=== PATIENT | male | born 1960 | race Two or more races ===

== ENCOUNTER 2020-09-08 15:57 | Outpatient (REF) | payer BC, SELFPAY ==
--- NOTE | ~2020-09-08 | XR_ITS ---
EXAMINATION: XR CHEST CLINICAL INFORMATION: Bronchitis. COMPARISON: None TECHNIQUE: 2 views of the chest were obtained. FINDINGS: The lungs are hyperinflated but clear. The heart size and pulmonary vascularity is normal. There is a left atrial appendage clip and mitral valve prosthesis in place. There are median sternotomy sutures from previous intervention. No gross bony abnormality seen. XR/XR chest 2V IMPRESSION: No acute cardiopulmonary process seen.
== END 2020-09-08 15:58 | disposition home or self-care (01) ==
LOC: HO.XRAY 15:57
PROVIDERS: PCP Internal Medicine; Visit Provider Nurse Practitioner Family
DX: J42 Unspecified chronic bronchitis (principal)
CPT/HCPCS: 71046

== ENCOUNTER 2020-09-11 08:09 | Outpatient (REF) | payer BC, SELFPAY ==
[2020-09-11 09:35] LABS: MANUAL DIFF FLAG NO
[2020-09-11 09:48] LABS: Basophils Percent Auto 0.2 % (0-2); Hematocrit 44.1 % (42-52); Hemoglobin 14.6 g/dl (14.0-18.0); Imm Gran Abs Auto 0.02 X10*3/uL (0.00-0.03); Imm Gran Pct Auto 0.2 % (0.0-0.4); Lymphocytes Percent Auto 22.5 % (20-40); Mean Corpuscular HGB Conc 33.1 g/dl (31.0-36.0); Mean Corpuscular Hemoglobin 29.6 pg (27.0-33.0); Mean Corpuscular Volume 89.3 fL (80-98); Mean Platelet Volume 11.2 fL (9.4-12.4); Monocytes Absolute Auto 0.7 X10*3/uL (0.1-1.2); Monocytes Percent Auto 7.3 % (2-11); Neutrophils Absolute Auto 6.2 X10*3/uL (2.0-8.3); Neutrophils Percent Auto 69.8 % (45-73); Platelet Count 217 X10*3/uL (160-400); Red Blood Count 4.94 X10*6/uL (4.60-5.80); Red Cell Distribution Width 13.6 % (11.0-16.0); White Blood Count 8.9 X10*3/uL (4.8-10.8)
[2020-09-11 10:17] LABS: Creatinine Urine 162.61 mg/dL; Microalbum/Creatinine Ratio Ur 6.7 ug/mg cr
[2020-09-11 10:32] LABS: Alanine Aminotransferase 27 U/L (0-40); Albumin Level 4.3 g/dL (3.5-5.0); Alkaline Phosphatase 58 U/L (39-117); Anion Gap 12 (12-20); Aspartate Amino Transferase 23 U/L (5-37); Bilirubin Direct 0.3 mg/dL (0.0-0.5); Bilirubin Total 0.6 mg/dL (0.0-1.0); Blood Urea Nitrogen 19 mg/dL (9-16); Calcium 9.1 mg/dL (8.4-10.2); Carbon Dioxide 27 mmol/L (22-29); Chloride 106 mmol/L (96-108); Cholesterol 183 mg/dL; Estimated Glomerular Filt Rate > 60; Glucose Fasting 161 mg/dL (60-99); HDL Cholesterol 50 mg/dL; LDL Cholesterol Calculated 121 mg/dl; Potassium 4.3 mmol/L (3.3-5.1); Sodium 141 mmol/L (135-145); Total Protein 7.3 g/dL (6.5-8.0); Triglycerides 61 mg/dL
[2020-09-11 10:38] LABS: Prostate Specific Antigen Scr 0.62 ng/mL (<0.05-4.0); TSH reflex Free T4 0.48 uIU/mL (0.32-4.0)
== END 2020-09-11 08:10 | disposition home or self-care (01) ==
LOC: HO.LAB 08:09
PROVIDERS: PCP Internal Medicine; Visit Provider Nurse Practitioner Family
DX: Z00.00 Encounter for general adult medical examination without abnormal findings (principal); E11.65 Type 2 diabetes mellitus with hyperglycemia
CPT/HCPCS: 36415; 80048; 80061; 80076; 82043; 84153; 84443; 85025

== ENCOUNTER 2020-11-24 15:31 | Outpatient (REF) | payer BC, SELFPAY ==
--- NOTE | ~2020-11-24 | XR_ITS ---
EXAMINATION: XR CHEST CLINICAL INFORMATION: Shortness of breath. COMPARISON: Most recent chest radiograph dated 09/08/2020. TECHNIQUE: 2 views of the chest were obtained. FINDINGS: Diffuse, chronic interstitial prominence is unchanged. Hyperinflation of the lungs is again noted. No new airspace consolidation. No pleural effusion or pneumothorax. Stable cardiomediastinal silhouette with sternal wires, valvuloplasty, and atrial appendage clip. XR/XR chest 2V IMPRESSION: No acute cardiopulmonary findings.
== END 2020-11-24 15:32 | disposition home or self-care (01) ==
LOC: HO.XRAY 15:31
PROVIDERS: PCP Internal Medicine; Visit Provider Internal Medicine
DX: R06.02 Shortness of breath (principal)
CPT/HCPCS: 71046

== ENCOUNTER 2024-01-22 07:49 | Outpatient (REF) | payer BC, SELFPAY ==
--- NOTE | ~2024-01-22 | MR_ITS ---
MRI OF THE BRAIN WITH AND WITHOUT IV CONTRAST INDICATION: Colloid cyst of the brain. COMPARISON: None available. TECHNIQUE: Multiplanar multisequence MR imaging of the brain was obtained without and following administration of 7.5 mL of Gadavist intravenous contrast without complication. FINDINGS: There is no pathologic enhancement intracranially. There is no hydrocephalus, extra-axial surface collection, or herniation. There is mild chronic microangiopathy. The major flow voids at the skull base are preserved. There is no acute infarct on diffusion-weighted imaging. There is no intracranial hemorrhage on the gradient recalled echo acquisition. Punctate focus of chronic hemosiderin staining within the periphery of the left parietal lobe. The midline structures are normal. The cerebellar tonsils are normally positioned. The cerebellum and brainstem are normal. The craniocervical junction is normal. Osseous marrow signal intensity is homogenous. The visualized soft tissues are unremarkable. Significant opacification of the ethmoid air cells bilaterally and mild mucosal thickening within the frontal sinuses and maxillary sinuses bilaterally. MR/MR head/brain wo con IMPRESSION: * No colloid cyst is appreciated on MRI. There is CSF flow artifact within the ventricles bilaterally. No pathological enhancement intracranially. * There is mild chronic microangiopathy. * Significant opacification of the ethmoid air cells bilaterally and mild mucosal thickening within the frontal sinuses and maxillary sinuses bilaterally. Electronically signed by: Dominik Kwong MD 02/19/2024 04:24 PM EDT
[2024-01-22] MEDS: gadobutroL 7.5 ML VIAL IVPUSH (09:24)
== END 2024-01-22 07:50 | disposition home or self-care (01) ==
LOC: HO.MRI 07:49
PROVIDERS: PCP Internal Medicine; Visit Provider Registered Nurse
DX: Q04.6 Congenital cerebral cysts (principal)
CPT/HCPCS: 70551; A9585

== ENCOUNTER 2024-02-11 15:23 | Outpatient (REF) | payer BC, SELFPAY ==
[2024-02-11 18:12] LABS: Erythrocyte Sedimentation Rate 2 MM/HR (0-15)
== END 2024-02-11 15:24 | disposition home or self-care (01) ==
LOC: HO.LAB 15:23
PROVIDERS: Visit Provider Registered Nurse
DX: Q04.6 Congenital cerebral cysts (principal)
CPT/HCPCS: 36415; 85652; 86140

== ENCOUNTER 2025-06-04 15:31 | Outpatient (AMB) | payer BC, SELFPAY ==
--- OUTSIDE RECORDS SUMMARY | 2024-10-27 10:30 | XMS_ITS | Continuity of Care Document ---
Author Organization [facility] Address [address] [place] [address] [address] [place] [id number] Phone Care Team Providers Care Cutter Gas Name Role Phone Vishnu SHANNON, ALONDRA, ARABELLA, Silvino Unavailable U navailable Procedures Procedure Date Office/Oupt E&M New Pt 45 Mins- CT & [place] Duplex Scan-extrem Veins; Uni/ CT & [place] M Advance Directives Directive Yes / No Effective Date File Name No Information Encounters Encounter Description Practice Location Reason(s) For Visit Diagnoses Date Provider Providers Copied on Encounter Office/Oupt E&M New Pt 45 Mins- CT & [place] [facility], [address] [place] [address] [address], [id number], [place] tel:[phone] [place] Varicose veins of right lower extremity with other complicationsTy pe 2 diabetes mellitus without complicationsEs sential (primary) hypertensionPru ritus, unspecified 5 Vishnu SHANNON, ALONDRA, ARABELLA [place]. [address] [facility] [address], [facility] [place], [id number] , [place]. tel:[phone] Referring Provider: Brian Connell MD, [address] [facility] [address], [place], [address]. tel:[phone] [facility], [address] [place] [address] [address] [place], [id number], [place] tel:[phone] [facility] Varicose veins of right lower extremity with pain Vishnu SHANNON, RVT, RPVI Silvino. [address] [facility], [address], [place], [id number] , [place]. tel:[phone] Referring Provider: Brian Connell MD, [address] [facility] [address], [place], [address]. tel:[phone] Family History Family Member Type Diagnosis Age At Onset No Information Payers Payer name Insurance type Covered republican ID Authoriza tivira(s) [facility] [id number] Social History Type Description Quantity Date Captured Comments Alcohol Use Details Unknown Caffeine Use Details Unknown Tobacco Use Status Current non-smoker Smoking Status Never Smoker Non-Smoking Tobacco Use Details : No Details Available : No Details Available Sex Male Vital Signs Date / Time: Height Weight BMI Pulse Rate Blood Pressure Temperature Respiratory Rate Body Surface Area Head Circumference Head Circ. Percentile Wt./Sam. Percentile BMI percentile Pulse Ox Inhaled Ox 77.560 kg (171.00 lbs) 27.6 8 kg/m eter (2) 136/80 mm[Hg] Chief Complaint And Reason For Visit No Information Reason For Referral Reason For Referral No Information Plan Of Treatment Date Type Action Status Goal Diet education completed Referral Ordered: Weight management: Referral to physician timeframe: 3 Months (related to Body mass index (BMI) 27.0-27.9, adult) ordered History Of Present Illness Encounter Date Complaint History Of Prese nt Illness No Information Functional Status Date Functional Assessmen t No Information Instructions Date Instruction Additional Infor mation Pre and post instruc tions reviewed and provided Related to Varicose veins of right lower extremity with other complications Patient education booklet given Related to Varicose veins of right lower extremity with other complications Lifestyle education Related to B ramsey mass index (BMI) 27.0-27.9, adult Giving Encouragement to exercise Related to Body mass index (BMI) 27.0-27.9, adult Diet education Related to Body mass index (BMI) 27.0-27.9, adult Assessments Type Assessment Date assessment Pruritus, unspecified assessment Varicose veins of ri ght lower extremity with other complications assessment Essential (primary) hypertension assessment Type 2 diabetes mellitus without complications Patient Care Teams Name Effective Dates (start - stop) Status Members No Information
--- NOTE | 2025-06-04 15:32 | A.OFFVIS_ITS ---
Vital Signs 06/04/25 15:37 Height 5 ft 9 in Weight 176 lb BMI 26.0 Intake Visit Reasons: 10 year recall colonoscopy Intake Note: Patient presents for 10 year recall colonoscopy. 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 Hard Candy Spinner Required: No Accompanied by: Self / Same As Patient Allergies No Known Allergies (No Known Allergies*) Allergy (Unverified 06/04/25 15:35) HPI HPI 10 year recall colonoscopy: Details: 65-year-old male referred for a recall colonoscopy. Review of his records show that his last colonoscopy was in 2016. At that time, a small polyp was removed and this was a tubular adenoma . He also had hemorrhoids . He denies GI complaints currently. He does admit to chronic constipation but he says that this has not new. He denies rectal bleeding. He denies any changes in his bowel habits. He does not have any significant family history of colon cancer. [facility] Medical History (Updated 11/09/20 @ 13:23 by Shaye Mcleod MD) Atrial fibrillation BPH (benign prostatic hyperplasia) GERD (gastroesophageal reflux disease) Hypertension Chronic bronchitis Hypercholesterolemia Type 2 diabetes mellitus with hyperglycemia Surgical History (Updated 11/09/20 @ 13:07 by Shaye Mcleod MD) Heart valve replaced H/O right inguinal hernia repair Family History (Updated 11/09/20 @ 13:08 by Shaye Mcleod MD) Mother No problems noted. Father Cancer Colon cancer Social History (Updated 11/09/20 @ 13:11 by Shaye Mcleod MD) Alcohol intake: never Review of Systems Const Denies chills and Denies fever(s) Card Denies chest pain, Denies dyspnea and Denies dyspnea on exertion Resp Denies cough, Denies dyspnea and Denies dyspnea on exertion GI Denies hematochezia and Denies change in bowel habits Denies hematuria and Denies difficulty urinating Musc Denies back pain and Denies limited range of motion Neuro Denies focal weakness and Denies convulsions Psych Denies depression and Denies mood swings Physical Exam Const General: comfortable and no acute distress Orientation/consciousness: patient oriented x3 Neck Neck: Yes no lymphadenopathy Resp Auscultation: clear to auscultation bilaterally Cardio Rhythm: regular rhythm GI Palpation (GI): Soft to palpation, nontender and no guarding Neuro General: patient oriented x3 Assessment & Plan Assessment & Plan (1) Screening for colon cancer: Code(s): Z12.11 - Encounter for screening for malignant neoplasm of colon Category: Medical Plan: I reviewed with him the technique of colonoscopy for screening. I explained the risks including but not limited to bleeding and perforation, as well as the benefits and alternatives. He says he understands the procedure well and has given consent. He does not seem to be at above average risk for colon cancer. Orders: Referrals General Surgery Procedure Notification Z12.11 - Encounter for screening for malignant neoplasm of colon Medications: New sodium,potassium,mag sulfates 17.5-3.13-1.6 gram (Suprep Bowel Prep Kit) DILUTE; drink full amount early evening before AND next morning at least 2 hr before procedure; follow w 960 mL water PO 354 mL 0RF Coding Level of Care Code New Pt Level 3 (22430) Diagnoses Screening for colon cancer Z12.11
[2025-06-04 15:37] VITALS: BMI 26.0
--- OUTSIDE RECORDS SUMMARY | 2025-06-04 23:02 | XMS_ITS | Clinical Summary ---
Author Organization [facility] Address [address] [place] [id number] Phone Care Team Providers Care Research Technician Name Role Phone Chance Walton MD Primary Care Provider [phone] Allergies No known active allergies Medications No known medications Active Problems No known active problems Family History Relation Status Comments Father Mother Alive Social History Tobacco Use Types Packs/Day Years Used Date Smoking Tobacco: Former Cigarettes Q uit: 1982 Smokeless Tobacco: Never Alcohol Use Standard Drinks/Week Comments No 0 (1 standard drink = 0.6 oz pur e alcohol) Education Answer Date Recorded Are you interested in more education? Not on leroy e 10/20/2022 Are you concerned about learning? Not on file 10/20/2022 No 10/20/2022 No 10/20/2022 Digital Access Answer Date Recorded No 11/18/2022 No 11/18/2022 No 11/18/2022 Reliable internet access at home? Not on file 11/18/2022 Device with a working camera? Not on file Sex and Gender Information Value Date Recorded Sex Assigned at Not on file Legal Sex Male 5:59 PM EST Gender Identity Not on file Sexual Orientation Not on file Last Filed Vital Signs Vital Sign Reading Time Taken Comments Blood Pressure - - Pulse - - Temperature - - Respiratory Rate - - Oxygen Saturation - - Inhaled Oxygen Concentration - - Weight 81.6 kg (180 lb) 06/11/2017 3:22 PM EST Height 175.3 cm (5' 9 ) 06/11/2017 3:22 PM EST Body Mass Index 26.58 06/11/2017 3:22 PM EST Plan of Treatment Health Maintenance Due Date Last Done Comments Adult Td,Tdap Booster 1962 LIPID PANEL 1962 DEPRESSION SCREENING 1974 SMOKING Hx and SMOKELESS TOBACCO SCREENING 1975 HEPATITIS C SCREENING 1980 HIV ONE-TIME SCREENING (18-6 5 YEARS) 1980 COLOGUARD 2007 COLONOSCOPY 2007 COLORECTAL CANCER SCREENING 2007 FIT TEST 2007 FOBT 2007 SIGMOIDOSCOPY 2007 VIRTUAL COLONOSCOPY 2007 PNEUMOCOCCAL VACCINES (50+ years) (1 of 1 - PCV) 2012 ZOSTER VACCINES (1 of 2) 2012 INFLUENZA VACCINE (#1) 2025 COVID-19 VACCINE (3 - 2024-2 6 season) 2025 12/03/2020, 11/12/2020 RSV VACCINE (1 - 1-dose 75+ series) 2037 HEPATITIS A VACCINES Aged Out No long er eligible based on patient's age to complete this topic HIB VACCINES Aged Out No longer eligi ble based on patient's age to complete this topic MENINGOCOCCAL VACCINES (ACWY) Aged Out No longer eligible based on patient's age to complete this topic MENINGOCOCCAL VACCINES (B) Aged Out N o longer eligible based on patient's age to complete this topic Medical Devices Not on file Insurance [employer] Care Teams Research Technician Relationship Specialty Start Date End Date Chance Walton MD [address] [place] [address] [place] [address] PCP - General Internal Medicine 05/29/17 Additional Source Comments The information contained in this document represents components of the legal health record. It is not the complete legal health record.[facility]
--- OUTSIDE RECORDS SUMMARY | 2025-06-04 23:02 | XMS_ITS | Clinical Summary ---
Author Organization [address] Address [address] [place] [address] Phone Care Team Providers Care Coat Finisher Name Role Phone Brian Connell MD Primary Care Provider Allergies Active Allergy Reactions Criticality Noted Date Comments Lisinopril 04/14/2025 dry cough Medications amoxicillin-clavul anate (AUGMENTIN) 875-125 mg per tablet 12/29/2024 Active Jardiance 10 mg tablet 02/25/2025 Active Wixela Inhub 250-50 mcg/dose diskus inhaler 11/25/2024 Acti ve losartan (COZAAR) 25 mg tablet 07/02/2024 Active metFORMIN XR (GLUCOPHAGE-XR) 500 mg 24 hr tablet 04/07/2025 Active warfarin (COUMADIN) 3 mg tablet 02/25/2025 Active Encounters Date Type Department Care Team Description 05/26/2025 2:30 PM EST Office Visit Orthopedic Surgery [facility] [address] [facility] [address] [place] [phone] Brook Felix MD 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 (Primary Dx) 05/11/2025 5:30 PM EST Treatment Outpatient Rehabilitation - [address] [phone] Abraham Chase, PT Right knee pain, unspecified chronicity (Primary Dx) 04/22/2025 8:30 AM EDT Evaluation Outpatient Rehabilitation - [address] [phone] Abraham Chase, PT Right knee pain, unspecified chronicity (Primary Dx); 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 04/20/2025 Lab Requisition [facility] - Main Lab [address] [facility] [place] [address] Brian Connell MD Postprocedural hypothyroidism; Encounter for therapeutic drug level monitoring; Encounter for general adult medical examination without abnormal findings; Unspecified osteoarthritis, unspecified site; Vitamin D deficiency, unspecified; Essential (primary) hypertension 04/14/2025 2:00 PM EDT Consult Orthopedic Surgery - [place] [address] [facility] [address] [place] [address] Brook Felix MD 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 (Primary Dx); Right knee pain, unspecified chronicity from Last 3 Months Surgical History Surgery Date Site/Laterality Comments CARDIAC SURGERY 06/25/2018 - 06/24/2019 Medical History Medical History Date Comments Hypertension Diabetes mellitus ([facility] V24, [facility] V28) History of heart surgery Social History Tobacco Use Types Packs/Day Years Used Date Smoking Tobacco: Never Assessed Sex and Gender Information Value Date Recorded Sex Assigned at Not on file Legal Sex Male 6:19 AM EST Gender Identity Not on file Sexual Orientation Not on file Last Filed Vital Signs Vital Sign Reading Time Taken Comments Blood Pressure - - Pulse - - Temperature - - Respiratory Rate - - Oxygen Saturation - - Inhaled Oxygen Concentration - - Weight 78.9 kg (174 lb) 04/14/2025 2:14 PM EDT Height 175.3 cm (5' 9 ) 04/14/2025 2:14 PM EDT Body Mass Index 25.7 04/14/2025 2:14 PM EDT Plan of Treatment Upcoming Encounters Date Type Department Care Team (Late st Contact Info) Description 06/10/2025 5:00 PM EST Treatment Outpatient Rehabilitation [address] [phone] Abraham Chase, PT Health Maintenance Due Date Last Done Comments Colorectal Cancer Screening: Colonoscopy 1962 RSV Immunization Adult Patients (1 - Risk 50-74 years 1-dose series) 2012 Zoster Vaccines (1 of 2) 2012 Pneumococcal Vaccine: 50+ Years (2 of 2 - PCV) 10/04/2019 10/03/2018 DTaP,Tdap,and Td Vaccines (2 - Td or Tdap) 11/16/2019 11/15/2009 HIV Screening 05/28/2022 Hepatitis C Screening 05/28/2022 Social Influencers of Health Screening 05/28/2022 Depression Screening 06/25/2024 COVID-19 Vaccine (4 - 2024-2 6 season) 2025 07/02/2021, 12/03/2020, 11/12/2020 Influenza Vaccine (#1) 2025 10/03/2018 Hypertension/CHF/CAD Annual BMP Blood Test 04/22/2026 04/22/2025, 12/29/2024, 08/19/2024 Cholesterol Screening (Lipid Panel) 04/22/2030 04/22/2025 Hepatitis A Vaccines Aged Out 11/15/2009 No long er eligible based on patient's age to complete this topic HIB Vaccines Aged Out No longer eligi ble based on patient's age to complete this topic HPV Vaccines Aged Out No longer eligi ble based on patient's age to complete this topic Hepatitis B Vaccines Aged Out No long er eligible based on patient's age to complete this topic IPV Vaccines Aged Out No longer eligi ble based on patient's age to complete this topic MMR Vaccines Aged Out No longer eligi ble based on patient's age to complete this topic Meningococcal ACWY Vaccine Aged Out N o longer eligible based on patient's age to complete this topic Meningococcal B Vaccine Aged Out No l onger eligible based on patient's age to complete this topic RSV Immunization Patients Under 20 months Aged Out No longer eligible b ased on patient's age to complete this topic Varicella Vaccines Aged Out No longer eligible based on patient's age to complete this topic Goals Goal Patient Goal Type Associated Problems Recent Progress Patient-Stated? Author LTG's 6 visits General Yes Abraham Chase, PT Note: Pt will report a 75% or better decrease in R knee crepitus when ascending stairs. Pt will be Independent and compliant with final HEP. Pt will demonstrate a 1/2 grade of better improvement in B LE strength deficits. Procedures Procedure Name Priority Date/Time Associated Diagnosis Comments CBC WITH AUTO DIFFERENTIAL Routine 04/22/2025 7:40 AM EDT Encounter for general adult medical examination without abnormal findings HEMOGLOBIN A1C Routine 04/22/2025 7:40 AM EDT Encounter for general adult medical examination without abnormal findings MICROALBUMIN CREATININE URINE RATIO Routine 04/22/2025 7:40 AM EDT Essential (primary) hypertension VITAMIN D 25 HYDROXY Routine 04/22/2025 7:40 AM EDT Vitamin D deficiency, unspecified LIPID PANEL WITH REFLEX TO DIRECT LDL Routine 04/22/2025 7:40 AM EDT Encounter for general adult medical examination without abnormal findings SEDIMENTATION RATE Routine 04/22/2025 7: 40 AM EDT Unspecified osteoarthritis, unspecified site CBC AND DIFFERENTIAL Routine 04/22/2025 7:40 AM EDT Encounter for general adult medical examination without abnormal findings COMPREHENSIVE METABOLIC PANEL Routine 04/22/2025 7:40 AM EDT Encounter for general adult medical examination without abnormal findings URIC ACID Routine 04/22/2025 7:40 AM EDT Encounter for therapeutic drug level monitoring THYROID STIMULATING HORMONE Routine 04/22/2025 7:40 AM EDT Postprocedural hypothyroidism XR KNEE 4+ VIEWS RIGHT Routine 04/14/2025 2:29 PM EDT Right knee pain, unspecified chronicity OK ARTHROCENTESIS/ASPIRA TION/INJECTION MAJOR JOINT/BURSA W/O U/S GUIDANCE Routine 04/14/2025 2:00 PM EDT 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 from Last 3 Months Results * Lipid panel with reflex to direct LDL (04/22/2025 7:40 AM EDT) Cholesterol 166 0 - 200 mg/dL LAB CHEMISTRY METHOD 04/22/2025 9:41 AM T [facility] Triglycerides 68 0 - 150 mg/dL LAB CHEMISTRY METHOD 04/22/2025 9:41 AM [facility] HDL 54 >=40 mg/dL LAB CHEMISTRY METHOD 04/22/2025 9:41 AM [facility] LDL Calculated 98 0 - 100 mg/dL LAB CHEMISTRY METHOD 04/22/2025 9:41 AM T [facility] Comment:Estimated LDL Calcul ated using equation: Total cholesterol - HDL cholesterol - (Triglycerides/5) VLDL Cholesterol Isauro 13.6 mg/dL LAB CHEMISTRY METHOD 04/22/2025 9:41 AM [facility] Non HDL Chol. (LDL+VLDL) 112 <145 mg/dL LAB CHEMISTRY METHOD 04/22/2025 9:41 AM [facility] Chol/HDL Ratio 3.1 0.0 - 4.4 LAB CHEMISTRY METHOD 04/22/2025 9:41 AM [facility] Blood Venous blood specimen / Unknown Venipuncture / Unknown 04/22/2025 7:40 AM EDT 04/22/2025 9:06 AM EDT us Brian Connell MD LAB BLOOD ORDERABLES Final Res ult [facility] [address] [place] [address], * (ABNORMAL) CBC auto differential (04/22/2025 7:40 AM EDT) WBC 8.0 4.8 - 10.8 K/[facility] LAB HEMETOLOGY METHOD 04/22/2025 9:16 AM [facility] RBC 5.10 4.50 - 5.50 M/mcL LAB HEMETOLOGY METHOD 04/22/2025 9:16 AM [facility] Hemoglobin 14.8 13.5 - 17.5 g/dL LAB HEMETOLOGY METHOD 04/22/2025 9:16 AM [facility] Hematocrit 45.8 42.0 - 54.0 % LAB HEMETOLOGY METHOD 04/22/2025 9:16 AM [facility] MCV 89.6 79.0 - 98.0 FL LAB HEMETOLOGY METHOD 04/22/2025 9:16 AM [facility] MCH 29.0 27.0 - 32.0 pcg LAB HEMETOLOGY METHOD 04/22/2025 9:16 AM [facility] MCHC 32.3 32.0 - 37.0 g/dL LAB HEMETOLOGY METHOD 04/22/2025 9:16 AM [facility] RDW 14.0 11.0 - 15.0 % LAB HEMETOLOGY METHOD 04/22/2025 9:16 AM [facility] Platelets 233 130 - 400 K/mcL LAB HEMETOLOGY METHOD 04/22/2025 9:16 AM [facility] MPV 10.4 7.0 - 11.0 FL LAB HEMETOLOGY METHOD 04/22/2025 9:16 AM [facility] NRBC 0.0 <1.0 % LAB HEMETOLOGY METHOD 04/22/2025 9:16 AM [facility] NRBC Absolute 0.00 <0.10 K/mcL LAB HEMETOLOGY METHOD 04/22/2025 9:16 AM [facility] Neutrophils Relative 51.2 % LAB HEMETOLOGY METHOD 04/22/2025 9:16 AM [facility] Lymphocytes Relative 31.7 % LAB HEMETOLOGY METHOD 04/22/2025 9:16 AM [facility] Monocytes Relative 10.7 % LAB HEMETOLOGY METHOD 04/22/2025 9:16 AM EDT [facility] Eosinophils Relative 4.8 % LAB HEMETOLOGY METHOD 04/22/2025 9:16 AM EDT [facility] Basophils Relative 1.1 % LAB HEMETOLOGY METHOD 04/22/2025 9:16 AM EDT [facility] Immature Granulocytes Relative 0.5 % LAB HEMETOLOGY METHOD 04/22/2025 9:16 AM EDT [facility] Neutrophils Absolute 4.07 1.50 - 7.00 K/mcL LAB HEMETOLOGY METHOD 04/22/2025 9:16 AM EDT [facility] Lymphocytes Absolute 2.52 1.00 - 5.00 K/mcL LAB HEMETOLOGY METHOD 04/22/2025 9:16 AM EDT [facility] Monocytes Absolute 0.85 0.20 - 1.00 K/mcL LAB HEMETOLOGY METHOD 04/22/2025 9:16 AM EDT [facility] Eosinophils Absolute 0.38 0.00 - 0.50 K/mcL LAB HEMETOLOGY METHOD 04/22/2025 9:16 AM EDT [facility] Basophils Absolute 0.09 0.00 - 0.20 K/mcL LAB HEMETOLOGY METHOD 04/22/2025 9:16 AM EDT [facility] Immature Granulocytes Absolute 0.04(H) 0.00 - 0.03 K/mcL LAB HEMETOLOGY METHOD 04/22/2025 9:16 AM EDT [facility] Blood Venous blood specimen / Unknown Venipuncture / Unknown 04/22/2025 7:40 AM EDT 04/22/2025 9:06 AM EDT us Brian Connell MD LAB BLOOD ORDERABLES Final Res ult [facility] [address] [place] [address], [place] [phone] * Microalbumin creatinine urine ratio (04/22/2025 7:40 AM EDT) Creatinine, Urine 170.0 mg/dL LAB CHEMISTRY METHOD 04/22/2025 9:55 AM EDT [facility] Microalb, Ur 13.3 0.0 - 29.0 mg/L LAB CHEMISTRY METHOD 04/22/2025 9:55 AM EDT [facility] Microalb/Creat Ratio 8 <30 mg/g creat LAB CHEMISTRY METHOD 04/22/2025 9:55 AM EDT [facility] Urine Urine specimen obtained by clean catch procedure / Unknown 04/22/2025 7:40 AM EDT 04/22/2025 9:06 AM EDT us Brian Connell MD LAB URINE ORDERABLES Final Res ult [facility] [address] [place] [address], [place] [phone] * (ABNORMAL) Vitamin D 25 hydroxy (04/22/2025 7:40 AM EDT) Vit D, 25-Hydroxy 26.5(L) 30.0 - 80.0 ng/mL LAB CHEMISTRY METHOD 04/22/2025 10:28 AM EDT [facility] Blood Venous blood specimen / Unknown Venipuncture / Unknown 04/22/2025 7:40 AM EDT 04/22/2025 9:06 AM EDT us Brian Connell MD LAB BLOOD ORDERABLES Final Res ult [facility] [address] [place] [address], [place] [phone] * Sedimentation rate (04/22/2025 7:40 AM EDT) Pathologist [facility] Sed Rate 7 0 - 20 mm/hr LAB HEMETOLOGY METHOD 04/22/2025 9:16 AM EDT [facility] Blood Venous blood specimen / Unknown Venipuncture / Unknown 04/22/2025 7:40 AM EDT 04/22/2025 9:06 AM EDT Brian Connell MD LAB BLOOD ORDERABLES Final Res ult Performing Organization Address [facility]/ZIP Co de Phone Number [facility] [address] [place] [address], [place] [phone] * Uric acid (04/22/2025 7:40 AM EDT) [facility] Uric Acid 3.9 3.7 - 9.2 mg/dL LAB CHEMISTRY METHOD 04/22/2025 9:41 AM EDT [facility] Blood Venous blood specimen / Unknown Venipuncture / Unknown 04/22/2025 7:40 AM EDT 04/22/2025 9:06 AM EDT Brian Connell MD LAB BLOOD ORDERABLES Final Res ult Performing Organization Address [facility]/ZIP Co de Phone Number [facility] [address] [place] [address], [place] [phone] * Thyroid stimulating hormone (04/22/2025 7:40 AM EDT) [facility] TSH 2.99 0.40 - 4.00 mcIU/mL LAB CHEMISTRY METHOD 04/22/2025 10:29 AM EDT [facility] Blood Venous blood specimen / Unknown Venipuncture / Unknown 04/22/2025 7:40 AM EDT 04/22/2025 9:06 AM EDT us Brian Connell MD LAB BLOOD ORDERABLES Final Res ult Performing Organization Address City/[facility]/ZIP Co de Phone Number [facility] [address] [place] [address], * (ABNORMAL) Hemoglobin A1c (04/22/2025 7:40 AM EDT) [facility] Hemoglobin A1C 7.8(H) <6.5 % LAB CHEMISTRY METHOD 04/22/2025 10:38 AM EDT [facility] Mean Bld Glu Estim. 177 mg/dL LAB CHEMISTRY METHOD 04/22/2025 10:38 AM EDT [facility] Blood Venous blood specimen / Unknown Venipuncture / Unknown 04/22/2025 7:40 AM EDT 04/22/2025 9:06 AM EDT Brian Connell MD LAB BLOOD ORDERABLES Final Res ult Performing Organization Address [facility]/ZIP Co de Phone Number [facility] [address] [place] [address], [place] [phone] * (ABNORMAL) Comprehensive metabolic panel (04/22/2025 7:40 AM EDT) [facility] Sodium 138 133 - 145 mmol/L LAB CHEMISTRY METHOD 04/22/2025 9:53 AM [facility] Potassium 4.2 3.5 - 5.5 mmol/L LAB CHEMISTRY METHOD 04/22/2025 9:53 AM T [facility] Chloride 108 96 - 110 mmol/L LAB CHEMISTRY METHOD 04/22/2025 9:53 AM EDT [facility] CO2 26 21 - 32 mmol/L LAB CHEMISTRY METHOD 04/22/2025 9:53 AM T [facility] Anion Gap 4 3 - 11 LAB CHEMISTRY METHOD 04/22/2025 9:53 AM [facility] Glucose 115(H) 70 - 100 mg/dL LAB CHEMISTRY METHOD 04/22/2025 9:53 AM [facility] BUN 23 5 - 25 mg/dL LAB CHEMISTRY METHOD 04/22/2025 9:53 AM [facility] Creatinine 1.17 0.70 - 1.30 mg/dL LAB CHEMISTRY METHOD 04/22/2025 9:53 AM [facility] eGFR 70 >=60 mL/min/1. 73m2 LAB CHEMISTRY METHOD 04/22/2025 9:53 AM [facility] Comment:Calculation based on the Chronic Kidney Disease Epidemiology Collaboration (CKD-EPI) equation refit without adjustment for race. BUN/Creatinine Ratio 19.7 LAB CHEMISTRY METHOD 04/22/2025 9:53 AM [facility] Calcium 9.1 8.5 - 10.5 mg/dL LAB CHEMISTRY METHOD 04/22/2025 9:53 AM [facility] AST (SGOT) 22 10 - 42 unit/L LAB CHEMISTRY METHOD 04/22/2025 9:53 AM [facility] ALT (SGPT) 43 10 - 60 unit/L LAB CHEMISTRY METHOD 04/22/2025 9:53 AM [facility] Alkaline Phosphatase 56 42 - 121 unit/L LAB CHEMISTRY METHOD 04/22/2025 9:53 AM [facility] Total Protein 7.0 6.0 - 8.0 g/dL LAB CHEMISTRY METHOD 04/22/2025 9:53 AM [facility] Albumin 3.8 3.2 - 5.0 g/dL LAB CHEMISTRY METHOD 04/22/2025 9:53 AM [facility] Total Bilirubin 0.7 0.0 - 1.4 mg/dL LAB CHEMISTRY METHOD 04/22/2025 9:53 AM [facility] Blood Venous blood specimen / Unknown Venipuncture / Unknown 04/22/2025 7:40 AM EDT 04/22/2025 9:06 AM EDT Brian Connell MD LAB BLOOD ORDERABLES Final Res ult [facility] [address] [place] [address], * XR Knee 4+ Views Right (04/14/2025 2:29 PM EDT) Anatomical Region Laterality Modality Lower Extremities, Knee Right Computed Radiography Narrative 04/14/2025 4:26 PM EDT There is overall well-maintained joint space in all three compartments of his bilateral knee but mildly narrowed in the medial compartment of the right knee. There is early osteophyte formation along the right medial femoral condyle. There is subchondral sclerosis of the medial tibial plateau bilaterally. There is spurring of the tibial spines. Brook Felix MD IMG XR PROCEDURES Diana l Result * OK ARTHROCENTESIS/ASPIRATION/INJECTION MAJOR JOINT/BURSA W/O U/S GUIDANCE (04/14/2025 2:00 PM EDT) Narrative Brook Felix MD - 04/14/2025 2:00 PM EDT Brook Felix MD 04/14/2025 4:29 PM L Inj/Asp: R knee Details: 21 G needle Medications: 4 mL BUPivacaine HCl 0.5 %; 4 mL lidocaine 1 %; 80 mg triamcinolone acetonide 40 mg/mL Brook Felix MD IN CLINIC/BEDSIDE NOEL BECERRA Final Result from Last 3 Months Insurance [facility] Care Teams Coat Finisher Relationship Specialty Start Date End Date Brian Connell MD [address] [place] [address] PCP - General Internal Medicine 08/19/24
--- OUTSIDE RECORDS SUMMARY | 2025-06-04 23:02 | XMS_ITS | Encounter Summary ---
Author Organization [facility] Address [address] [place] [address] Care Team Providers Care Cotton Puller Name Role Phone Brian Connell MD Primary Care Provider [phone] Encounter Details Date Type Department Care Team (Latest Contact Info) Description 12/29/2024 Lab Requisition [facility] - Main Lab [address] [facility] [place] [phone] Brian Connell MD [address] [place], [place] [phone] Postprocedural hypothyroidism; Essential (primary) hypertension; Unspecified osteoarthritis, unspecified site; Vitamin D deficiency, unspecified; Type 2 diabetes mellitus with hyperglycemia (CMS/HCC V24, CMS/HCC V28) Social History Tobacco Use Types Packs/Day Years Used Date Smoking Tobacco: Never Assessed Sex and Gender Information Value Date Recorded Sex Assigned at Not on file Legal Sex Male 6:19 AM EST Gender Identity Not on file Sexual Orientation Not on file documented as of this encounter Plan of Treatment Upcoming Encounters Date Type Department Care Team (Late st Contact Info) Description 06/10/2025 5:00 PM EST Treatment Outpatient [address] [phone] Abraham Chase, PT documented as of this encounter Procedures Procedure Name Priority Date/Time Associated Diagnosis Comments VITAMIN D 25 HYDROXY Routine 12/29/2024 2:37 PM EDT Vitamin D deficiency, unspecified SEDIMENTATION RATE Routine 12/29/2024 2: 37 PM EDT Unspecified osteoarthritis, unspecified site THYROID STIMULATING HORMONE Routine 12/29/2024 2:37 PM EDT Postprocedural hypothyroidism HEMOGLOBIN A1C Routine 12/29/2024 2:37 PM EDT Type 2 diabetes mellitus with hyperglycemia ([facility] V24, [facility] V28) COMPREHENSIVE METABOLIC PANEL Routine 12/29/2024 2:37 PM EDT Essential (primary) hypertension documented in this encounter Results * (ABNORMAL) Hemoglobin A1c (12/29/2024 2:37 PM EDT) Hemoglobin A1C 7.3(H) <6.5 % LAB CHEMISTRY METHOD 12/29/2024 9:13 PM EDT [facility] Mean Bld Glu Estim. 163 mg/dL LAB CHEMISTRY METHOD 12/29/2024 9:13 PM EDT [facility] Blood Venous blood specimen / Unknown Venipuncture / Unknown 12/29/2024 2:37 PM EDT 12/29/2024 2:50 PM EDT Brian Connell MD LAB BLOOD ORDERABLES Final Res ult Performing Organization Address City/[facility] Co de Phone Number [facility] [address] [place] [address], * (ABNORMAL) Vitamin D 25 hydroxy (12/29/2024 2:37 PM EDT) Vit D, 25-Hydroxy 23.4(L) 30.0 - 80.0 ng/mL LAB CHEMISTRY METHOD 12/29/2024 4:58 PM EDT [facility] Blood Venous blood specimen / Unknown Venipuncture / Unknown 12/29/2024 2:37 PM EDT 12/29/2024 2:49 PM EDT Brian Connell MD LAB BLOOD ORDERABLES Final Res ult [facility] [address] [place] [address], [place] [phone] * Sedimentation rate (12/29/2024 2:37 PM EDT) Sed Rate 6 0 - 20 mm/hr LAB HEMETOLOGY METHOD 12/29/2024 3:00 PM EDT [facility] Blood Venous blood specimen / Unknown Venipuncture / Unknown 12/29/2024 2:37 PM EDT 12/29/2024 2:50 PM EDT Brian Connell MD LAB BLOOD ORDERABLES Final Res ult Performing Organization Address [facility]/ZIP Co de Phone Number [facility] [address] [place] [address], [place] [phone] * (ABNORMAL) Comprehensive metabolic panel (12/29/2024 2:37 PM EDT) [facility] Sodium 139 133 - 145 mmol/L LAB CHEMISTRY METHOD 12/29/2024 3:55 PM EDT [facility] Potassium 4.0 3.5 - 5.5 mmol/L LAB CHEMISTRY METHOD 12/29/2024 3:55 PM EDT [facility] Chloride 106 96 - 110 mmol/L LAB CHEMISTRY METHOD 12/29/2024 3:55 PM EDT [facility] CO2 29 21 - 32 mmol/L LAB CHEMISTRY METHOD 12/29/2024 3:55 PM EDT [facility] Anion Gap 4 3 - 11 LAB CHEMISTRY METHOD 12/29/2024 3:55 PM EDT [facility] Glucose 174(H) 70 - 100 mg/dL LAB CHEMISTRY METHOD 12/29/2024 3:55 PM EDT [facility] BUN 16 5 - 25 mg/dL LAB CHEMISTRY METHOD 12/29/2024 3:55 PM EDT [facility] Creatinine 1.34(H) 0.70 - 1.30 mg/dL LAB CHEMISTRY METHOD 12/29/2024 3:55 PM EDT [facility] eGFR 60 >=60 mL/min/1. 73m2 LAB CHEMISTRY METHOD 12/29/2024 3:55 PM T [facility] Comment:Calculation based on the Chronic Kidney Disease Epidemiology Collaboration (CKD-EPI) equation refit without adjustment for race. BUN/Creatinine Ratio 11.9 LAB CHEMISTRY METHOD 12/29/2024 3:55 PM EDT [facility] Calcium 8.9 8.5 - 10.5 mg/dL LAB CHEMISTRY METHOD 12/29/2024 3:55 PM [facility] AST (SGOT) 18 10 - 42 unit/L LAB CHEMISTRY METHOD 12/29/2024 3:55 PM [facility] ALT (SGPT) 31 10 - 60 unit/L LAB CHEMISTRY METHOD 12/29/2024 3:55 PM T [facility] Alkaline Phosphatase 63 42 - 121 unit/L LAB CHEMISTRY METHOD 12/29/2024 3:55 PM T [facility] Total Protein 6.9 6.0 - 8.0 g/dL LAB CHEMISTRY METHOD 12/29/2024 3:55 PM [facility] Albumin 3.7 3.2 - 5.0 g/dL LAB CHEMISTRY METHOD 12/29/2024 3:55 PM [facility] Total Bilirubin 0.4 0.0 - 1.4 mg/dL LAB CHEMISTRY METHOD 12/29/2024 3:55 PM [facility] Blood Venous blood specimen / Unknown Venipuncture / Unknown 12/29/2024 2:37 PM EDT 12/29/2024 2:49 PM EDT us Brian Connell MD LAB BLOOD ORDERABLES Final Res ult [facility] [address] [place] [address], [place] [phone] * Thyroid stimulating hormone (12/29/2024 2:37 PM EDT) TSH 1.70 0.40 - 4.00 mcIU/mL LAB CHEMISTRY METHOD 12/29/2024 4:58 PM EDT [facility] Blood Venous blood specimen / Unknown Venipuncture / Unknown 12/29/2024 2:37 PM EDT 12/29/2024 2:49 PM EDT Brian Connell MD LAB BLOOD ORDERABLES Final Res ult [facility] [address] [place] [address], documented in this encounter Visit Diagnoses Diagnosis Postprocedural hypothyroidism Postsurgical hypothyroidism Essential (primary) hypertension Unspecified essential hypertension Unspecified osteoarthritis, unspecified site Vitamin D deficiency, unspecified Type 2 diabetes mellitus with hyperglycemia (CMS/HCC V24, CMS/HCC V28) documented in this encounter Care Teams Cotton Puller Relationship Specialty Start Date End Date Brian Connell MD [address] [place] [address] PCP - General Internal Medicine 08/19/24 documented as of this encounter
--- OUTSIDE RECORDS SUMMARY | 2025-06-04 23:02 | XMS_ITS | Encounter Summary ---
Author Organization [facility] Address [address] [place] [address] Care Team Providers Care Java Oracle Developer Name Role Phone Brian Connell MD Primary Care Provider [phone] Encounter Details Date Type Department Care Team (Latest Contact Info) Description 04/20/2025 Lab Requisition [facility] - Main Lab [address] [facility] [place] [phone] Brian Connell MD [address] [place], [place] [id number] Postprocedural hypothyroidism; Encounter for therapeutic drug level monitoring; Encounter for general adult medical examination without abnormal findings; Unspecified osteoarthritis, unspecified site; Vitamin D deficiency, unspecified; Essential (primary) hypertension Social History Tobacco Use Types Packs/Day Years [...] 06/10/2025 5:00 PM EST Treatment Outpatient Rehabilitation [address] [phone] Abraham Chase, PT documented as of this encounter Goals Goal Patient Goal Type Associated Problems Recent Progress Patient-Stated? Author LTG's 6 visits General Yes Abraham Chase, PT Note: Pt will report a 75% or better decrease in R knee crepitus when ascending stairs. Pt will be Independent and compliant with final HEP. Pt will demonstrate a 1/2 grade of better improvement in B LE strength deficits. documented as of this encounter Procedures Procedure Name Priority Date/Time Associated Diagnosis Comments LIPID PANEL WITH REFLEX TO DIRECT LDL Routine 04/22/2025 7:40 AM EDT Encounter for general adult medical examination without abnormal findings CBC WITH AUTO DIFFERENTIAL Routine 04/22/2025 7:40 AM EDT Encounter for general adult medical examination without abnormal findings MICROALBUMIN CREATININE URINE RATIO Routine 04/22/2025 7:40 AM EDT Essential (primary) hypertension VITAMIN D 25 HYDROXY Routine 04/22/2025 7:40 AM EDT Vitamin D deficiency, unspecified SEDIMENTATION RATE Routine 04/22/2025 7: 40 AM EDT Unspecified osteoarthritis, unspecified site CBC AND DIFFERENTIAL Routine 04/22/2025 7:40 AM EDT Encounter for general adult medical examination without abnormal findings URIC ACID Routine 04/22/2025 7:40 AM EDT Encounter for therapeutic drug level monitoring THYROID STIMULATING HORMONE Routine 04/22/2025 7:40 AM EDT Postprocedural hypothyroidism HEMOGLOBIN A1C Routine 04/22/2025 7:40 AM EDT Encounter for general adult medical examination without abnormal findings COMPREHENSIVE METABOLIC PANEL Routine 04/22/2025 7:40 AM EDT Encounter for general adult medical examination without abnormal findings documented in this encounter Results * (ABNORMAL) CBC auto differential (04/22/2025 7:40 AM EDT) WBC 8.0 4.8 - 10.8 K/[facility] LAB HEMETOLOGY METHOD 04/22/2025 9:16 AM EDT [facility] RBC 5.10 4.50 - 5.50 M/[facility] LAB HEMETOLOGY METHOD 04/22/2025 9:16 AM EDT [facility] Hemoglobin 14.8 13.5 - 17.5 g/dL LAB HEMETOLOGY METHOD 04/22/2025 9:16 AM [facility] Hematocrit 45.8 42.0 - 54.0 % LAB HEMETOLOGY METHOD 04/22/2025 9:16 AM [facility] LAB MCV 89.6 79.0 - 98.0 FL LAB HEMETOLOGY METHOD 04/22/2025 9:16 AM [facility] LAB MCH 29.0 27.0 - 32.0 pcg LAB HEMETOLOGY METHOD 04/22/2025 9:16 AM [facility] LAB MCHC 32.3 32.0 - 37.0 g/dL LAB HEMETOLOGY METHOD 04/22/2025 9:16 AM [facility] RDW 14.0 11.0 - 15.0 % LAB HEMETOLOGY METHOD 04/22/2025 9:16 AM [facility] Platelets 233 130 - 400 K/mcL LAB HEMETOLOGY METHOD 04/22/2025 9:16 AM [facility] LAB MPV 10.4 7.0 - 11.0 FL LAB HEMETOLOGY METHOD 04/22/2025 9:16 AM [facility] NRBC 0.0 <1.0 % LAB HEMETOLOGY METHOD 04/22/2025 9:16 AM [facility] NRBC Absolute 0.00 <0.10 K/mcL LAB HEMETOLOGY METHOD 04/22/2025 9:16 AM [facility] Neutrophils Relative 51.2 % LAB HEMETOLOGY METHOD 04/22/2025 9:16 AM [facility] Lymphocytes Relative 31.7 % LAB HEMETOLOGY METHOD 04/22/2025 9:16 AM [facility] Monocytes Relative 10.7 % LAB HEMETOLOGY METHOD 04/22/2025 9:16 AM EDT [facility] Eosinophils Relative 4.8 % LAB HEMETOLOGY METHOD 04/22/2025 9:16 AM EDT [facility] Basophils Relative 1.1 % LAB HEMETOLOGY METHOD 04/22/2025 9:16 AM EDT [facility] Immature Granulocytes Relative 0.5 % LAB HEMETOLOGY METHOD 04/22/2025 9:16 AM EDT [facility] Neutrophils Absolute 4.07 1.50 - 7.00 K/mcL LAB HEMETOLOGY METHOD 04/22/2025 9:16 AM EDT [facility] Lymphocytes Absolute 2.52 1.00 - 5.00 K/mcL LAB HEMETOLOGY METHOD 04/22/2025 9:16 AM EDT [facility] Monocytes Absolute 0.85 0.20 - 1.00 K/mcL LAB HEMETOLOGY METHOD 04/22/2025 9:16 AM EDT [facility] Eosinophils Absolute 0.38 0.00 - 0.50 K/mcL LAB HEMETOLOGY METHOD 04/22/2025 9:16 AM EDT [facility] Basophils Absolute 0.09 0.00 - 0.20 K/mcL LAB HEMETOLOGY METHOD 04/22/2025 9:16 AM EDT [facility] Immature Granulocytes Absolute 0.04(H) 0.00 - 0.03 K/mcL LAB HEMETOLOGY METHOD 04/22/2025 9:16 AM EDT [facility] Blood Venous blood specimen / Unknown Venipuncture / Unknown 04/22/2025 7:40 AM EDT 04/22/2025 9:06 AM EDT us Brian Connell MD LAB BLOOD ORDERABLES Final Res ult [facility] [address] [place] [address], * (ABNORMAL) Hemoglobin A1c (04/22/2025 7:40 AM EDT) Hemoglobin A1C 7.8(H) <6.5 % LAB CHEMISTRY METHOD 04/22/2025 10:38 AM EDT [facility] Mean Bld Glu Estim. 177 mg/dL LAB CHEMISTRY METHOD 04/22/2025 10:38 AM EDT [facility] Blood Venous blood specimen / Unknown Venipuncture / Unknown 04/22/2025 7:40 AM EDT 04/22/2025 9:06 AM EDT us Brian Connell MD LAB BLOOD ORDERABLES Final Res ult Performing Organization Address [facility]/ZIP Co de Phone Number [facility] [address] [place] [address], * Microalbumin creatinine urine ratio (04/22/2025 7:40 AM EDT) Creatinine, Urine 170.0 mg/dL LAB CHEMISTRY METHOD 04/22/2025 9:55 AM EDT [facility] Microalb, Ur 13.3 0.0 - 29.0 mg/L LAB CHEMISTRY METHOD 04/22/2025 9:55 AM EDT [facility] Microalb/Creat Ratio 8 <30 mg/g creat LAB CHEMISTRY METHOD 04/22/2025 9:55 AM EDT [facility] Urine Urine specimen obtained by clean catch procedure / Unknown 04/22/2025 7:40 AM EDT 04/22/2025 9:06 AM EDT us Brian Connell MD LAB URINE ORDERABLES Final Res ult Performing Organization Address [facility]/ZIP Co de Phone Number [facility] [address] [place] [address], [place] [phone] * (ABNORMAL) Vitamin D 25 hydroxy (04/22/2025 7:40 AM EDT) [facility] Vit D, 25-Hydroxy 26.5(L) 30.0 - 80.0 ng/mL LAB CHEMISTRY METHOD 04/22/2025 10:28 AM EDT [facility] Blood Venous blood specimen / Unknown Venipuncture / Unknown 04/22/2025 7:40 AM EDT 04/22/2025 9:06 AM EDT us Brian Connell MD LAB BLOOD ORDERABLES Final Res ult [facility] [address] [place] [address], [place] [phone] * Lipid panel with reflex to direct LDL (04/22/2025 7:40 AM EDT) [facility] Cholesterol 166 0 - 200 mg/dL LAB CHEMISTRY METHOD 04/22/2025 9:41 AM [facility] Triglycerides 68 0 - 150 mg/dL LAB CHEMISTRY METHOD 04/22/2025 9:41 AM [facility] HDL 54 >=40 mg/dL LAB CHEMISTRY METHOD 04/22/2025 9:41 AM [facility] LDL Calculated 98 0 - 100 mg/dL LAB CHEMISTRY METHOD 04/22/2025 9:41 AM [facility] LAB Comment:Estimated LDL Calcul ated using equation: Total cholesterol - HDL cholesterol - (Triglycerides/5) VLDL Cholesterol Isauro 13.6 mg/dL LAB CHEMISTRY METHOD 04/22/2025 9:41 AM [facility] Non HDL Chol. (LDL+VLDL) 112 <145 mg/dL LAB CHEMISTRY METHOD 04/22/2025 9:41 AM [facility] Chol/HDL Ratio 3.1 0.0 - 4.4 LAB CHEMISTRY METHOD 04/22/2025 9:41 AM EDT [facility] Blood Venous blood specimen / Unknown Venipuncture / Unknown 04/22/2025 7:40 AM EDT 04/22/2025 9:06 AM EDT Brian Connell MD LAB BLOOD ORDERABLES Final Res ult Performing Organization Address City/[facility]/ZIP Co de Phone Number [facility] [address] [place] [address], [place] [phone] * Sedimentation rate (04/22/2025 7:40 AM EDT) Pathologist [facility] Sed Rate 7 0 - 20 mm/hr LAB HEMETOLOGY METHOD 04/22/2025 9:16 AM EDT [facility] Blood Venous blood specimen / Unknown Venipuncture / Unknown 04/22/2025 7:40 AM EDT 04/22/2025 9:06 AM EDT us Brian Connell MD LAB BLOOD ORDERABLES Final Res ult Performing Organization Address City/[facility]/ZIP Co de Phone Number [facility] [address] [place] [address], [place] [phone] * (ABNORMAL) Comprehensive metabolic panel (04/22/2025 7:40 AM EDT) Pathologist [facility] Sodium 138 133 - 145 mmol/L LAB CHEMISTRY METHOD 04/22/2025 9:53 AM EDT [facility] Potassium 4.2 3.5 - 5.5 mmol/L LAB CHEMISTRY METHOD 04/22/2025 9:53 AM EDT [facility] Chloride 108 96 - 110 mmol/L LAB CHEMISTRY METHOD 04/22/2025 9:53 AM EDT [facility] CO2 26 21 - 32 mmol/L LAB CHEMISTRY METHOD 04/22/2025 9:53 AM EDT [facility] Anion Gap 4 3 - 11 LAB CHEMISTRY METHOD 04/22/2025 9:53 AM [facility] Glucose 115(H) 70 - 100 mg/dL LAB CHEMISTRY METHOD 04/22/2025 9:53 AM [facility] BUN 23 5 - 25 mg/dL LAB CHEMISTRY METHOD 04/22/2025 9:53 AM [facility] Creatinine 1.17 0.70 - 1.30 mg/dL LAB CHEMISTRY METHOD 04/22/2025 9:53 AM [facility] eGFR 70 >=60 mL/min/1. 73m2 LAB CHEMISTRY METHOD 04/22/2025 9:53 AM [facility] Comment:Calculation based on the Chronic Kidney Disease Epidemiology Collaboration (CKD-EPI) equation refit without adjustment for race. BUN/Creatinine Ratio 19.7 LAB CHEMISTRY METHOD 04/22/2025 9:53 AM [facility] Calcium 9.1 8.5 - 10.5 mg/dL LAB CHEMISTRY METHOD 04/22/2025 9:53 AM [facility] AST (SGOT) 22 10 - 42 unit/L LAB CHEMISTRY METHOD 04/22/2025 9:53 AM [facility] ALT (SGPT) 43 10 - 60 unit/L LAB CHEMISTRY METHOD 04/22/2025 9:53 AM [facility] Alkaline Phosphatase 56 42 - 121 unit/L LAB CHEMISTRY METHOD 04/22/2025 9:53 AM [facility] Total Protein 7.0 6.0 - 8.0 g/dL LAB CHEMISTRY METHOD 04/22/2025 9:53 AM [facility] Albumin 3.8 3.2 - 5.0 g/dL LAB CHEMISTRY METHOD 04/22/2025 9:53 AM [facility] Total Bilirubin 0.7 0.0 - 1.4 mg/dL LAB CHEMISTRY METHOD 04/22/2025 9:53 AM EDT [facility] Blood Venous blood specimen / Unknown Venipuncture / Unknown 04/22/2025 7:40 AM EDT 04/22/2025 9:06 AM EDT Brian Connell MD LAB BLOOD ORDERABLES Final Res ult [facility] [address] [place] [address], [place] [phone] * Uric acid (04/22/2025 7:40 AM EDT) Uric Acid 3.9 3.7 - 9.2 mg/dL LAB CHEMISTRY METHOD 04/22/2025 9:41 AM EDT [facility] Blood Venous blood specimen / Unknown Venipuncture / Unknown 04/22/2025 7:40 AM EDT 04/22/2025 9:06 AM EDT us Brian Connell MD LAB BLOOD ORDERABLES Final Res ult Performing Organization Address [facility]/ZIP Co de Phone Number [facility] [address] [place] [address], [place] [phone] * Thyroid stimulating hormone (04/22/2025 7:40 AM EDT) TSH 2.99 0.40 - 4.00 mcIU/mL LAB CHEMISTRY METHOD 04/22/2025 10:29 AM EDT [facility] Blood Venous blood specimen / Unknown Venipuncture / Unknown 04/22/2025 7:40 AM EDT 04/22/2025 9:06 AM EDT us Brian Connell MD LAB BLOOD ORDERABLES Final Res ult Performing Organization Address City/[facility]/ZIP Co de Phone Number [facility] [address] [place] [address], [place] [phone] documented in this encounter Visit Diagnoses Diagnosis Postprocedural hypothyroidism Postsurgical hypothyroidism Encounter for therapeutic drug level monitoring Encounter for general adult medical examination without abnormal findings Unspecified osteoarthritis, unspecified site Vitamin D deficiency, unspecified Essential (primary) hypertension Unspecified essential hypertension documented in this encounter Care Teams Java Oracle Developer Relationship Specialty Start Date End Date Brian Connell MD [address] [place] [phone] PCP - General Internal Medicine 08/19/24 documented as of this encounter
--- OUTSIDE RECORDS SUMMARY | 2025-06-04 23:02 | XMS_ITS | Encounter Summary ---
Author Organization [facility] Address [address] [place] [address] Phone Care Team Providers Care Wrecker Operator Name Role Phone Chance Walton MD Primary Care Provider [phone] Encounter Details Date Type Department Care Team (Late st Contact Info) Description 05/29/2017 Ancillary Orders [facility], X-Ray - [address] [place] [address] Sakshi Zuniga, [facility] [address] [facility], [address] [place] [address] [email or web address] Pain Social History Tobacco Use Types Packs/Day Years Used Date Smoking Tobacco: Never Assessed Sex and Gender Information Value Date Recorded Sex Assigned at Not on file Legal Sex Male 5:59 PM EST Gender Identity Not on file Sexual Orientation Not on file documented as of this encounter Plan of Treatment Not on file documented as of this encounter Results * XR FINGER 4TH DIGIT (RIGHT) (05/29/2017 6:14 PM EST) Anatomical Region Laterality Modality Hand Right Radiographic Angelica ging 05/29/2017 6:31 PM EST Impressions 05/29/2017 6:34 PM EST Tuft fracture of the fourth digit. POS - [id number] Narrative 05/29/2017 6:34 PM EST HISTORY: Status post crush injury of the distal phalanx of the fourth digit COMPARISON: None FINDINGS: PA view of the hand and two additional views of the fourth digit are performed. Nondisplaced tuft fracture of the fourth digit. No malalignment. Mild joint space narrowing with spurring involving the first CMC and first IP joints from degenerative change. No destructive bone lesion. Procedure Note Trevor Keating MD - 05/29/2017 HISTORY: Status post crush injury of the distal phalanx of the fourthdigit COMPARISON: None FINDINGS: PA view of the hand and two additional views of the fourth digit areperformed. Nondisplaced tuft fracture of the fourth digit. Nomalalignment. Mild joint space narrowing with spurring involving thefirst CMC and first IP joints from degenerative change. No destructivebone lesion. IMPRESSION: Tuft fracture of the fourth digit. POS - [id number] Sakshi Zuniga [employer] IMG XR UPPER EXTREMITY F inal Result documented in this encounter Visit Diagnoses Diagnosis Pain Generalized pain Pain Generalized pain documented in this encounter Care Teams Wrecker Operator Relationship Specialty Start Date End Date Chance Walton MD [address] [place] [address] [place] [address] PCP - General Internal Medicine 05/29/17 documented as of this encounter Additional Source Comments The information contained in this document represents components of the legal health record. It is not the complete legal health record.[facility]
--- OUTSIDE RECORDS SUMMARY | 2025-06-04 23:02 | XMS_ITS | Encounter Summary ---
Author Organization [facility] Address [address] [place] [address] Care Team Providers Care Time Analysis Clerk Name Role Phone Brian Connell MD Primary Care Provider [phone] Encounter Details Date Type Department Care Team (Latest Contact Info) Description 08/18/2024 Lab Requisition [facility] - Main Lab [address] [facility] [place] [phone] Brian Connell MD [address] [place], [place] [id number] Postprocedural hypothyroidism; Essential (primary) hypertension; Mild intermittent asthma, uncomplicated; Unspecified osteoarthritis, unspecified site; Vitamin D deficiency, [...] 06/10/2025 5:00 PM EST Treatment Outpatient Rehabilitation [address] [phone] Abraham Chase, PT documented as of this encounter Procedures Procedure Name Priority Date/Time Associated Diagnosis Comments CBC WITH AUTO DIFFERENTIAL Routine 08/19/2024 1:14 PM EST Mild intermittent asthma, uncomplicated VITAMIN D 1,25 DIHYDROXY Routine 08/19/2024 1:14 PM EST Vitamin D deficiency, unspecified VITAMIN D 25 HYDROXY Routine 08/19/2024 1:14 PM EST Vitamin D deficiency, unspecified SEDIMENTATION RATE Routine 08/19/2024 1: 14 PM EST Unspecified osteoarthritis, unspecified site CBC AND DIFFERENTIAL Routine 08/19/2024 1:14 PM EST Mild intermittent asthma, uncomplicated THYROID STIMULATING HORMONE Routine 08/19/2024 1:14 PM EST Postprocedural hypothyroidism HEMOGLOBIN A1C Routine 08/19/2024 1:14 PM EST Type 2 diabetes mellitus with hyperglycemia (CMS/HCC) COMPREHENSIVE METABOLIC PANEL Routine 08/19/2024 1:14 PM EST Essential (primary) hypertension documented in this encounter Results * (ABNORMAL) CBC auto differential (08/19/2024 1:14 PM EST) WBC 6.2 4.8 - 10.8 K/mcL LAB HEMETOLOGY METHOD 08/19/2024 1:58 PM [facility] RBC 4.90 4.50 - 5.50 M/mcL LAB HEMETOLOGY METHOD 08/19/2024 1:58 PM [facility] Hemoglobin 14.3 13.5 - 17.5 g/dL LAB HEMETOLOGY METHOD 08/19/2024 1:58 PM [facility] Hematocrit 43.7 42.0 - 54.0 % LAB HEMETOLOGY METHOD 08/19/2024 1:58 PM [facility] MCV 89.7 79.0 - 98.0 FL LAB HEMETOLOGY METHOD 08/19/2024 1:58 PM [facility] MCH 29.4 27.0 - 32.0 pcg LAB HEMETOLOGY METHOD 08/19/2024 1:58 PM [facility] MCHC 32.7 32.0 - 37.0 g/dL LAB HEMETOLOGY METHOD 08/19/2024 1:58 PM [facility] RDW 13.8 11.0 - 15.0 % LAB HEMETOLOGY METHOD 08/19/2024 1:58 PM [facility] Platelets 180 130 - 400 K/mcL LAB HEMETOLOGY METHOD 08/19/2024 1:58 PM [facility] MPV 11.2(H) 7.0 - 11.0 FL LAB HEMETOLOGY METHOD 08/19/2024 1:58 PM [facility] NRBC 0.0 <1.0 % LAB HEMETOLOGY METHOD 08/19/2024 1:58 PM [facility] NRBC Absolute 0.00 <0.10 K/mcL LAB HEMETOLOGY METHOD 08/19/2024 1:58 PM [facility] Neutrophils Relative 44.4 % LAB HEMETOLOGY METHOD 08/19/2024 1:58 PM [facility] Lymphocytes Relative 36.7 % LAB HEMETOLOGY METHOD 08/19/2024 1:58 PM [facility] Monocytes Relative 10.0 % LAB HEMETOLOGY METHOD 08/19/2024 1:58 PM [facility] Eosinophils Relative 7.8 % LAB HEMETOLOGY METHOD 08/19/2024 1:58 PM [facility] Basophils Relative 0.8 % LAB HEMETOLOGY METHOD 08/19/2024 1:58 PM [facility] Immature Granulocytes Relative 0.3 % LAB HEMETOLOGY METHOD 08/19/2024 1:58 PM [facility] Neutrophils Absolute 2.74 1.50 - 7.00 K/mcL LAB HEMETOLOGY METHOD 08/19/2024 1:58 PM [facility] Lymphocytes Absolute 2.27 1.00 - 5.00 K/mcL LAB HEMETOLOGY METHOD 08/19/2024 1:58 PM EST [facility] Monocytes Absolute 0.62 0.20 - 1.00 K/[facility] LAB HEMETOLOGY METHOD 08/19/2024 1:58 PM EST [facility] Eosinophils Absolute 0.48 0.00 - 0.50 K/[facility] LAB HEMETOLOGY METHOD 08/19/2024 1:58 PM EST [facility] Basophils Absolute 0.05 0.00 - 0.20 K/[facility] LAB HEMETOLOGY METHOD 08/19/2024 1:58 PM EST [facility] Immature Granulocytes Absolute 0.02 0.00 - 0.03 K/[facility] LAB HEMETOLOGY METHOD 08/19/2024 1:58 PM EST [facility] Blood Venous blood specimen / Unknown Venipuncture / Unknown 08/19/2024 1:14 PM EST 08/19/2024 1:52 PM EST us Brian Connell MD LAB BLOOD ORDERABLES Final Res ult [facility] [address] [place] [address], * (ABNORMAL) Hemoglobin A1c (08/19/2024 1:14 PM EST) Hemoglobin A1C 7.0(H) <6.5 % LAB CHEMISTRY METHOD 08/19/2024 8:29 PM EST [facility] Mean Bld Glu Estim. 154 mg/dL LAB CHEMISTRY METHOD 08/19/2024 8:29 PM EST [facility] Blood Venous blood specimen / Unknown Venipuncture / Unknown 08/19/2024 1:14 PM EST 08/19/2024 1:52 PM EST us Brian Connell MD LAB BLOOD ORDERABLES Final Res ult [facility] [address] [place] [address], [place] [phone] * Vitamin D 1,25 dihydroxy (08/19/2024 1:14 PM EST) Vitamin D, 1, 25-Dihydroxy 40 20 - 79 pg/mL 08/22/2024 9:10 PM EST [facility] Comment: Vitamin D 1, 25 dihydroxy levels should be primarily used to assess Vitamin D status in patients with renal disease and hypercalcemia. Vitamin D 1,25-dihydroxy levels are generally less than 5 pg/mL in end stage renal disease patients. The preferred initial test for assessing Vitamin D status in the general population is Vitamin D 25-hydroxy (VITD). Test performed at [facility], [address] [place] [address] Sarah Whitlock MD, PhD - Graduate Nurse Blood Venous blood specimen / Unknown Venipuncture / Unknown 08/19/2024 1:14 PM EST 08/19/2024 1:52 PM EST Brian Connell MD LAB BLOOD ORDERABLES Final Res ult [facility] [address] [place] [address] * (ABNORMAL) Vitamin D 25 hydroxy (08/19/2024 1:14 PM EST) Pathologist [facility] Vit D, 25-Hydroxy 7.4(L) 30.0 - 80.0 ng/mL LAB CHEMISTRY METHOD 08/19/2024 3:29 PM EST [facility] Blood Venous blood specimen / Unknown Venipuncture / Unknown 08/19/2024 1:14 PM EST 08/19/2024 1:52 PM EST Brian Connell MD LAB BLOOD ORDERABLES Final Res ult [facility] [address] [place] [address], [place] [phone] * Sedimentation rate (08/19/2024 1:14 PM EST) Sed Rate 10 0 - 20 mm/hr LAB HEMETOLOGY METHOD 08/19/2024 1:59 PM EST [facility] Blood Venous blood specimen / Unknown Venipuncture / Unknown 08/19/2024 1:14 PM EST 08/19/2024 1:52 PM EST us Brian Connell MD LAB BLOOD ORDERABLES Final Res ult [facility] [address] [place] [address], [place] [phone] * (ABNORMAL) Comprehensive metabolic panel (08/19/2024 1:14 PM EST) Pathologist [facility] Sodium 140 133 - 145 mmol/L LAB CHEMISTRY METHOD 08/19/2024 3:21 PM [facility] Potassium 4.2 3.5 - 5.5 mmol/L LAB CHEMISTRY METHOD 08/19/2024 3:21 PM [facility] Chloride 108 96 - 110 mmol/L LAB CHEMISTRY METHOD 08/19/2024 3:21 PM [facility] CO2 25 21 - 32 mmol/L LAB CHEMISTRY METHOD 08/19/2024 3:21 PM [facility] Anion Gap 7 3 - 11 LAB CHEMISTRY METHOD 08/19/2024 3:21 PM [facility] Glucose 148(H) 70 - 100 mg/dL LAB CHEMISTRY METHOD 08/19/2024 3:21 PM [facility] BUN 15 5 - 25 mg/dL LAB CHEMISTRY METHOD 08/19/2024 3:21 PM [facility] Creatinine 1.14 0.70 - 1.30 mg/dL LAB CHEMISTRY METHOD 08/19/2024 3:21 PM [facility] eGFR 73 >=60 mL/min/1. 73m2 LAB CHEMISTRY METHOD 08/19/2024 3:21 PM [facility] Comment:Calculation based on the Chronic Kidney Disease Epidemiology Collaboration (CKD-EPI) equation refit without adjustment for race. BUN/Creatinine Ratio 13.2 LAB CHEMISTRY METHOD 08/19/2024 3:21 PM [facility] Calcium 8.9 8.5 - 10.5 mg/dL LAB CHEMISTRY METHOD 08/19/2024 3:21 PM [facility] AST (SGOT) 23 10 - 42 unit/L LAB CHEMISTRY METHOD 08/19/2024 3:21 PM [facility] ALT (SGPT) 32 10 - 60 unit/L LAB CHEMISTRY METHOD 08/19/2024 3:21 PM [facility] Alkaline Phosphatase 66 42 - 121 unit/L LAB CHEMISTRY METHOD 08/19/2024 3:21 PM [facility] Total Protein 7.3 6.0 - 8.0 g/dL LAB CHEMISTRY METHOD 08/19/2024 3:21 PM [facility] Albumin 3.9 3.2 - 5.0 g/dL LAB CHEMISTRY METHOD 08/19/2024 3:21 PM [facility] Total Bilirubin 0.3 0.0 - 1.4 mg/dL LAB CHEMISTRY METHOD 08/19/2024 3:21 PM [facility] Blood Venous blood specimen / Unknown Venipuncture / Unknown 08/19/2024 1:14 PM EST 08/19/2024 1:52 PM EST us Brian Connell MD LAB BLOOD ORDERABLES Final Res ult [facility] [address] [place] [address], * Thyroid stimulating hormone (08/19/2024 1:14 PM EST) TSH 2.08 0.40 - 4.00 mcIU/mL LAB CHEMISTRY METHOD 08/19/2024 2:50 PM EST [facility] Blood Venous blood specimen / Unknown Venipuncture / Unknown 08/19/2024 1:14 PM EST 08/19/2024 1:52 PM EST us Brian Connell MD LAB BLOOD ORDERABLES Final Res ult [facility] [address] [place] [address], [place] [phone] documented in this encounter Visit Diagnoses Diagnosis Postprocedural hypothyroidism Postsurgical hypothyroidism Essential (primary) hypertension Unspecified essential hypertension Mild intermittent asthma, uncomplicated Unspecified osteoarthritis, unspecified site Vitamin D deficiency, unspecified Type 2 diabetes mellitus with hyperglycemia (CMS/HCC V24, CMS/HCC V28) documented in this encounter Care Teams Time Analysis Clerk Relationship Specialty Start Date End Date Brian Connell MD [address] [place] [address] PCP - General Internal Medicine 08/19/24 documented as of this encounter
== END 2025-06-04 15:44 | disposition home or self-care (01) ==
LOC: HO.HGS 15:31
PROVIDERS: PCP Internal Medicine; Visit Provider Surgery
DX: Z12.11 Encounter for screening for malignant neoplasm of colon (principal)
CPT/HCPCS: 99203